=== PATIENT | female | born 1960 | race Caucasian/White ===

== ENCOUNTER → 2017-05-08 | Outpatient (CLI) | payer OTHER | LOC: COL.RAD 08:02 | DX: R19.4 Change in bowel habit (principal); R14.0 Abdominal distension (gaseous); R10.9 Unspecified abdominal pain | CPT/HCPCS: A9541 ==

== ENCOUNTER 2018-10-07 21:25 | Emergency (ER) | payer OTHER ==
[~2018-10-07] VITALS: Ht 167.6 cm; Wt 88.6 kg
[2018-10-07 21:31] VITALS: TEMP 97.5
[2018-10-07] MEDS ORDERED: ZANTAC 150MG T150 MG PO (21:35)
[2018-10-07] MEDS ORDERED: PROTONIX 40MG T40 MG PO (21:35)
[2018-10-07] MEDS ORDERED: BUSPAR10 MG PO (21:35)
[2018-10-07] MEDS ORDERED: ZANAFLEX 4MG TAB4 MG PO (21:36)
[2018-10-07] MEDS ORDERED: MASON NATURAL2000 IU (21:36)
[2018-10-07] MEDS ORDERED: CELEBREX 200MG200 MG PO (21:36)
[2018-10-07] MEDS ORDERED: LANTUS SOLOS100 U/ML SQ (21:37)
[2018-10-07] MEDS ORDERED: LIPITOR20 MG PO (21:37)
[2018-10-07] MEDS ORDERED: NOVOLOG FLEX100 U/ML SQ (21:37)
[2018-10-07] MEDS ORDERED: LIPITOR 10MG10 MG PO (21:37)
[2018-10-07] MEDS ORDERED: PRINIVIL20 MG PO (21:39)
[2018-10-07 23:18] VITALS: BP 130/59; PULSE 75
== END 2018-10-07 23:23 | disposition home or self-care (01) ==
LOC: COL.ER 21:25
DX: M25.512 Pain in left shoulder (principal); E11.9 Type 2 diabetes mellitus without complications; Z79.4 Long term (current) use of insulin; Z90.49 Acquired absence of other specified parts of digestive tract

== ENCOUNTER → 2020-10-05 | Outpatient (CLI) | payer OTHER ==
[~2020-10-05] MED LIST: BUSPAR10 MG PO; CELEBREX 200MG200 MG PO; LANTUS SOLOS100 U/ML SQ; LIPITOR 10MG10 MG PO; LIPITOR20 MG PO; MASON NATURAL2000 IU; NOVOLOG FLEX100 U/ML SQ; PRINIVIL20 MG PO; PROTONIX 40MG T40 MG PO; ZANAFLEX 4MG TAB4 MG PO; ZANTAC 150MG T150 MG PO
== END ==
LOC: COL.RAD 09:57
DX: S46.012A Strain of muscle(s) and tendon(s) of the rotator cuff of left shoulder, initial encounter (principal); R60.0 Localized edema